=== PATIENT | female | born 1950 | race Caucasian/White ===

== ENCOUNTER 2021-03-18 06:32 | Day surgery (SDC) | payer MEDICARE ==
[~2021-03-18 06:32] MED LIST: Lactated Ringers 1,000 ML IV SCH
[2021-03-18] MEDS ORDERED: propofoL 50 ML ONE (07:20)
[2021-03-18] MEDS ORDERED: fentaNYL 100 MCG/2 ML SDV ONE (07:21)
--- NOTE | 2021-03-18 07:24 | PCM.PREANE ---
Preanesthetic Assessment - Procedure Proposed Procedure: Colonoscopy - Anesthesia/Transfusion/Family Hx Anesthesia History: Prior Anesthesia Without Reaction Other Type of Anesthesia Reaction Comment: daughter has hard time coming out of anesthesia Family History of Anesthesia Reaction: No Transfusion History: Prior Transfusion Without Reaction - Review of Systems General: No Symptoms Pulmonary: No Symptoms (KIRTI does NOT use CPAP) Cardiovascular: No Symptoms (HTN, HLD) Gastrointestinal: No Symptoms (IBS, GERD) Neurological: No Symptoms Other: Reports: Depression, Anxiety - Physical Assessment NPO Status Date: 03/16/21 NPO Status Time: 20:00 Vital Signs: Last Vital Signs Temp 96.8 F L 03/18/21 07:00 Pulse 54 L 03/18/21 07:00 Resp 15 03/18/21 07:00 BP 124/58 L 03/18/21 07:00 Pulse Ox 94 L 03/18/21 07:00 Height: 5 ft Weight: 82.554 kg (obesity) ASA Class: 3 Mental Status: Alert & Oriented x3 Airway Class: Mallampati = 3 Dentition: Reports: Dentures (Full upper) Thyro-Mental Finger Breadths: 2 Mouth Opening Finger Breadths: 3 ROM/Head Extension: Full Lungs: Clear to Auscultation, Normal Respiratory Effort Cardiovascular: Regular Rate, Regular Rhythm - Allergies Allergies/Adverse Reactions: Allergies Allergy/AdvReac Type Severity Reaction Status Date / Time Penicillins Allergy Hives Verified 03/14/21 09:43 - Acknowledgements Anesthesia Type Planned: General Anesthesia Pt an Appropriate Candidate for the Planned Anesthesia: Yes Alternatives and Risks of Anesthesia Discussed w Pt/Guardian: Yes Pt/Guardian Understands and Agrees with Anesthesia Plan: Yes PreAnesthesia Questionnaire HEENT History: Reports: Other (See Below) Other HEENT History: wears glasses, has top denture Cardiovascular History: Reports: High Cholesterol, Hypertension Respiratory History: Reports: Sleep Apnea Other Respiratory History: does not use CPAP, denies any lung problems, has prescribed inhaler due to low SAO2 level at a clinic visit when she had cold symptoms Gastrointestinal History: Reports: GERD Genitourinary History: Reports: None [employer]ATOR History: Reports: Musculoskeletal History: Reports: Arthritis, Back Pain, Chronic Neurological History: Reports: None Psychiatric History: Reports: None Endocrine/Metabolic History: Reports: Obesity/BMI 30+ Hematologic History: Reports: Blood Transfusion(s) Other Hematologic History: blood transfusion after c/section Immunologic History: Reports: None Oncologic (Cancer) History: Reports: None Dermatologic History: Reports: None - Past Surgical History Head Surgeries/Procedures: Reports: None HEENT Surgical History: Reports: Cataract Surgery Cardiovascular Surgical History: Reports: None Respiratory Surgical History: Reports: None GI Surgical History: Reports: Colonoscopy Female Surgical History: Reports: Section, Tubal Ligation Endocrine Surgical History: Reports: None Neurological Surgical History: Reports: None Oncologic Surgical History: Reports: None Dermatological Surgical History: Reports: None - SUBSTANCE USE Tobacco Use Status *Q: Never Tobacco User Recreational Drug Use History: No - HOME MEDS Home Medications: Home Meds Lisinopril/Hydrochlorothiazide [Lisinopril-Hctz 20-25 mg Tab] 1 tab PO DAILY 01/03/16 [History] Metoprolol Succinate [Toprol XL] 25 mg PO BEDTIME 01/03/16 [History] Omeprazole Magnesium [Prilosec Otc] 20 mg PO ASDIRECTED PRN 01/03/16 [History] Simvastatin [Zocor] 40 mg PO BEDTIME 01/03/16 [History] Aspirin [Nallely Chewable Aspirin] 81 mg PO ASDIRECTED 03/14/21 [History] Tiotropium BR/Olodaterol HCL [Stiolto Respimat] 2 puff INH DAILY PRN 03/14/21 [History] traZODone HCl [Trazodone HCl] 0.5 tab PO BEDTIME 03/14/21 [History] - CURRENT (IN HOUSE) MEDS Current Meds: Current Medications Lactated Ringer's (Ringers, Lactated) 1,000 mls @ 125 mls/hr IV ASDIRECTED ANN-MARIE Last Admin: 03/18/21 07:00 Dose: 125 mls/hr Documented by:
--- NOTE | 2021-03-18 08:21 | PCM.OPNOTE ---
- General Post-Op/Procedure Note Date of Surgery/Procedure: 03/18/21 Operative Procedure(s): Colonoscopy Pre Op Diagnosis: Personal history of colon polyps. Family history of colon cancer. Post-Op Diagnosis: Sigmoid diverticulosis Anesthesia Technique: MAC (ASA III) Primary Surgeon: Manfred Salinas Condition: Good Free Text/Narrative:: DICTATION [id number] CPT CODE [id number]
--- NOTE | 2021-03-18 08:21 | PCM.POSTAN ---
POST ANESTHESIA ASSESSMENT - MENTAL STATUS Mental Status: Alert, Oriented - VITAL SIGNS Vital Signs: Last Vital Signs Temp 96.8 F L 03/18/21 07:00 Pulse 54 L 03/18/21 07:00 Resp 15 03/18/21 07:00 BP 124/58 L 03/18/21 07:00 Pulse Ox 94 L 03/18/21 07:00 - RESPIRATORY Respiratory Status: Respiratory Rate WNL, Airway Patent, O2 Saturation Stable - CARDIOVASCULAR CV Status: Pulse Rate WNL, Blood Pressure Stable - GASTROINTESTINAL GI Status: No Symptoms - PAIN Pain Score: 0 - POST OP HYDRATION Hydration Status: Adequate & Stable
--- NOTE | 2021-03-18 08:28 | PCM48HPAN ---
Post Anesthesia Note - EVALUATION WITHIN 48HRS OF ANESTHETIC Vital Signs in Normal Range: Yes Patient Participated in Evaluation: Yes Respiratory Function Stable: Yes Airway Patent: Yes Cardiovascular Function Stable: Yes Hydration Status Stable: Yes Pain Control Satisfactory: Yes Nausea and Vomiting Control Satisfactory: Yes Mental Status Recovered: Yes Vital Signs: Last Vital Signs Temp 96.8 F L 03/18/21 07:00 Pulse 54 L 03/18/21 07:00 Resp 15 03/18/21 07:00 BP 124/58 L 03/18/21 07:00 Pulse Ox 94 L 03/18/21 07:00 - COMMENTS/OBSERVATIONS Free Text/Narrative:: Pt doing well post-op. VSS. No apparent anesthetic complications. Dr. Naun Ball
[2021-03-18] MEDS ORDERED: Lactated Ringers 1,000 ML IV SCH (08:30)
--- NOTE | 2021-03-18 08:53 | OR ---
SURGEON: Manfred Salinas M.D. DATE OF PROCEDURE: 03/18/2021 OPERATION PERFORMED: Colonoscopy. PRIMARY SURGEON: Manfred Salinas MD ANESTHESIA: MAC. ASA CLASSIFICATION: III. PREOPERATIVE DIAGNOSES: 1. Family history of colon cancer. 2. Personal history of colon polyps. POSTOPERATIVE DIAGNOSIS: Sigmoid diverticulosis. DESCRIPTION OF PROCEDURE: The patient was taken to the endoscopy room and positioned on the endoscopy table in the left lateral decubitus position. Time-out was called for appropriate identification of patient and procedure. Monitored anesthesia care was provided. The colonoscope was inserted into the rectum and advanced with minimal difficulty to the cecum. The cecum was identified by internal landmarks and external pressure. The colonoscope was retroflexed to visualize the ascending colon from below, then straightened, and slowly withdrawn. The cecum, ascending colon, hepatic flexure, transverse colon, splenic flexure, and descending colon showed no tumors, polyps, diverticula, or angiodysplastic changes. Moderate diverticular changes were noted within the sigmoid colon. No acute inflammatory changes were noted, and there was no obvious stricture. Once the colonoscope was withdrawn to the rectum, it was retroflexed to visualize the anal orifice from above. Again, no tumors or polyps were seen and there were no acute hemorrhoidal changes. The colonoscope was then straightened, the rectum aspirated, and the colonoscope removed. The patient tolerated the procedure well and was taken to recovery room in stable condition. OZIEL / JONATHAN /[id number]
[2021-03-18 08:54] VITALS: BP 90/52; PULSE 45
== END 2021-03-18 08:55 | disposition home or self-care (01) ==
LOC: MW.SDS 06:32
PROVIDERS: ATTEND Surgery
DX: Z12.11 Encounter for screening for malignant neoplasm of colon (principal); K57.30 Diverticulosis of large intestine without perforation or abscess without bleeding; F41.9 Anxiety disorder, unspecified; I10 Essential (primary) hypertension; E78.00 Pure hypercholesterolemia, unspecified; E66.01 Morbid (severe) obesity due to excess calories; Z86.010 Personal history of colon polyps; Z80.0 Family history of malignant neoplasm of digestive organs; Z88.0 Allergy status to penicillin; Z79.82 Long term (current) use of aspirin; Z79.899 Other long term (current) drug therapy; Z98.890 Other specified postprocedural states; Z68.35 Body mass index [BMI] 35.0-35.9, adult
CPT/HCPCS: G0105; J2704; J3010; J7120